=== PATIENT | male | born 1970 | race Caucasian/White ===

== ENCOUNTER 2020-07-17 14:02 | Emergency (ER) | payer OTHER, SELFPAY ==
[~2020-07-17] VITALS: Ht 167.6 cm; Wt 125.2 kg
[~2020-07-17 14:02] MED LIST: APAP/HYDROCODON1 T13 PO; COL100 PO; PHEDML PO; PROAIR HFA0.09 MG/A1 IH
[2020-07-17 14:13] VITALS: Ht 167.6 cm; Wt 125.2 kg
[2020-07-17 15:34] VITALS: BP 155/107
== END 2020-07-17 15:34 | disposition home or self-care (01) ==
LOC: ED 14:02
DX: U07.1 COVID-19 (principal); I10 Essential (primary) hypertension; J45.909 Unspecified asthma, uncomplicated